=== PATIENT | female | born 2000 | race Two or more races ===

== ENCOUNTER → 2023-08-30 10:53 | Outpatient (CLI) | payer OTHER | END | disposition home or self-care (01) | LOC: PRENATAL 10:53 | PROVIDERS: ATTEND Obstetrics & Gynecology Maternal & Fetal Medicine | DX: O36.80X0 Pregnancy with inconclusive fetal viability, not applicable or unspecified (principal); Z36.0 Encounter for antenatal screening for chromosomal anomalies; Z36.82 Encounter for antenatal screening for nuchal translucency; Z3A.12 12 weeks gestation of pregnancy ==

== ENCOUNTER 2023-10-18 12:46 | Outpatient (CLI) | payer OTHER | END 2023-10-18 12:47 | disposition home or self-care (01) | LOC: PRENATAL 12:46 | PROVIDERS: ATTEND Obstetrics & Gynecology Maternal & Fetal Medicine | DX: O35.9XX0 Maternal care for (suspected) fetal abnormality and damage, unspecified, not applicable or unspecified (principal); O35.3XX0 Maternal care for (suspected) damage to fetus from viral disease in mother, not applicable or unspecified; O44.00 Complete placenta previa NOS or without hemorrhage, unspecified trimester; Z3A.19 19 weeks gestation of pregnancy ==

== ENCOUNTER 2024-03-04 00:57 | Inpatient (IN) | payer OTHER ==
[~2024-03-04] VITALS: Ht 162.6 cm; Wt 60.8 kg
[2024-03-04] MEDS ORDERED: RINGERS SOLUTION,LACTATED 1,000 ML IV SCH (01:00)
[2024-03-04 01:23] LABS: PH,URINE 6.5 (5.0-8.0); URINE APPEARANCE Turbid; URINE BILIRRUBIN Negative (NEGATIVE); URINE BLOOD Large; URINE COLOR Yellow; URINE GLUCOSE Negative (NEGATIVE); URINE LEUKOCYTE Small; URINE NITRATE Negative; URINE PROTEIN Trace (NEGATIVE)
[2024-03-04] MEDS ORDERED: PRENATAL TABLE1 EAC1 PO (01:25)
[2024-03-04 01:26] LABS: HEMATOCRIT 34.4 % (36.0-45.00); MEAN CELL VOLUME 88.8 fL (80.00-100.00); MEAN CORPUSCULAR HGB CONC 34.1 g/dl (32.0-36.0); PLATELET COUNT 306 K/uL (150-450); RED BLOOD COUNT 3.88 M/uL (4.00-6.00); URINE BACTERIA 2461.9 uL (0.0-1933); URINE RBC 9.9 uL (0.0-20.8); URINE WBC 93.3 uL (0.0-23.2)
[2024-03-04 01:27] LABS: HEMOGLOBIN 11.7 g/dL (12.0-15.00); MEAN CORPUSCULAR HEMOGLOBIN 30.1 pg (27.00-32.0); RED CELL DISTRIBUTION WIDTH 15.1 % (11.5-14.5)
[2024-03-04 01:40] LABS: INR < 0.93; PARTIAL THROMBOPLASTIN TIME 27.5 SECONDS (22.0-34.0); PROTHROMBIN TIME 9.6 SECONDS (9.0-11.5)
[2024-03-04 01:45] LABS: ALBUMIN 3.2 gm/dL (3.4-5.0); BILIRUBIN TOTAL 0.38 mg/dL (0.3-1.2); CREATININE SERUM 0.44 mg/dL (0.55-1.02); GFR 180.5; GLOBULINA 3.8 G/DL (2.4-3.5); POTASSIUM 3.5 mEq/L (3.5-5.1)
[2024-03-04] MEDS ORDERED: DOCUSATE SODIUM 100MG CAP PO SCH ×2 (04:11→09:00)
[2024-03-04] MEDS ORDERED: ERYTHROMYCIN BASE 1 GM TUBE OP SCH (04:15)
[2024-03-04] MEDS ORDERED: CHLORHEXIDINE GLUCONATE 120 ML BOTTLE TOP SCH (04:15)
[2024-03-04] MEDS ORDERED: OXYTOCIN 500 ML IV SCH (04:15)
[2024-03-04] MEDS ORDERED: IBUprofen 400 MG TABLET PO PRN (04:15)
[2024-03-04] MEDS ORDERED: LIDOCAINE HCL 1% 10ML VIAL PERCUT ONE (05:00)
[2024-03-06] MEDS ORDERED: COLACE100 MG PO (08:35)
== END 2024-03-06 11:07 | disposition home or self-care (01) | DRG 768 ==
LOC: LDR 00:57 → OB/GYN 05:15
PROVIDERS: ADMIT Obstetrics & Gynecology; ATTEND Obstetrics & Gynecology
PROC: 10E0XZZ Delivery of Products of Conception, External Approach (ICD-10-PCS; principal; 2024-03-04)
PROC: 0DQR0ZZ Repair Anal Sphincter, Open Approach (ICD-10-PCS; 2024-03-04)
PROC: 4A1HXCZ Monitoring of Products of Conception, Cardiac Rate, External Approach (ICD-10-PCS; 2024-03-04)
DX: O70.21 Third degree perineal laceration during delivery, IIIa (principal); Z37.0 Single live birth; Z3A.38 38 weeks gestation of pregnancy; Z20.822 Contact with and (suspected) exposure to COVID-19